=== PATIENT | female | born 1990 | race Caucasian/White ===

== ENCOUNTER 2021-12-02 09:07 | Emergency (ER) | payer OTHER, SELFPAY ==
--- NOTE | ~2021-12-02 | US_ITS ---
EXAMINATION: US pelvic complete EXAM DATE: 12/02/2021 11:51 INDICATION: left ovarian cyst . TECHNIQUE: Pelvic transabdominal sonogram was performed. There are multiple grayscale and Doppler im ages available for interpretation. Correlation is made to CT performed an hour earlier. FINDINGS: Uterus measures 7.9 x 4.3 x 2.7 cm, and is morphologically normal. Endometrial stripe farideh sures 2 mm, within normal limits. There is no free pelvic fluid. Right adnexa: The ovary measures 2.1 x 2.3 x 1.3 cm and is morphologically normal. Ovarian vascular f low confirmed. Left adnexa: The ovary measures 4.3 x 3.5 x 3.3 cm, with complex cystic fishnet appearance lesion farideh suring 3.5 x 3.1 x 2.7 cm, consistent with a hemorrhagic cyst. Ovarian vascular flow confirmed. IMPRESSION: 1. Unruptured left ovarian hemorrhagic cyst. Reviewed, dictated and finalized at location B.
--- NOTE | ~2021-12-02 | CT_ITS ---
EXAMINATION: CT abdomen pelvis w con EXAM DATE: 12/02/2021 10:53 INDICATION: Mid abdominal pain. TECHNIQUE: Spiral CT of the abdomen and pelvis was performed following intravenous injection of 100 m L Omnipaque 350. Axial, coronal and sagittal images of the abdomen and pelvis were reviewed. The do se-length product (DLP) for this examination was 341.85 mGy-cm. The exposure was tailored according to patient size (auto mA exposure control), and iterative reconstruction (ASIR) was used as additiona l dose reduction technique. There is no prior study for comparison. FINDINGS: The liver, spleen, adrenal glands and pancreas are unremarkable. Gallbladder is unremarkab le. No biliary obstruction. Portal and splenic veins are patent. Kidneys enhance symmetrically. T here is no hydronephrosis. The uterus is unremarkable. There is a 3 cm left ovarian unruptured phys iologic or hemorrhagic cyst. The bladder is unremarkable. There is no retroperitoneal or pelvic lym phadenopathy. The appendix is normal. The stomach and small bowel are unremarkable. There is expected amount of c olonic stool. No free intraperitoneal gas. The heart is normal in size. There are no pericardial or pleural effusions. The lung bases are unremarkable. The bones are unremarkable. IMPRESSION: 1. Left ovarian unruptured physiologic or hemorrhagic cyst. 2. No acute findings. Reviewed, dictated and finalized at location B.
[2021-12-02 09:33] VITALS: BP 152/97; PULSE 96; RESP 20; TEMP 36.8; O2SAT 100
--- NOTE | 2021-12-02 09:33 | PC.NURSE ---
PT states she is unable to urinate.
[2021-12-02 09:43] LABS: Basophils Absolute Auto 0.1 K/mm3 (0.0-0.1); Basophils Percent Auto 0.5 % (0.2-1.2); Eosinophils Percent Auto 0.2 % (0-4.4); Hematocrit 38.9 % (37.0-47.0); Hemoglobin 13.6 g/dL (12.0-15.0); Immature Granulocyte Absolute 0.03 K/mm3 (0.00-0.031); Immature Granulocyte Percent A 0.3 % (0-0.5); Lymphocytes Percent Auto 26.6 % (18.3-44.2); Mean Corpuscular Hemoglobin 31.5 pg (26-34); Mean Platelet Volume 9.8 fl (7.4-10.4); Monocytes Absolute Auto 0.7 K/mm3 (0.1-0.6); Monocytes Percent Auto 7.2 % (2.6-8.5); Neutrophils Absolute Auto 6.6 K/mm3 (1.3-6.7); Neutrophils Percent Auto 65.2 % (45.5-73.1); Platelet Count Result 340 k/mm3 (150-375); Red Blood Count 4.32 M/mm3 (4.2-5.4); Red Cell Distribution Width 11.9 % (11.5-14.5); White Blood Count 10.1 K/mm3 (4.5-10.0)
[2021-12-02 09:55] LABS: Alanine Aminotransferase 18 U/L (4-35); Albumin Level 4.6 g/dL (3.5-5.1); Alkaline Phosphatase 75 U/L (38-126); Anion Gap 9 mmol/L (8-16); Aspartate Amino Transferase 23 U/L (14-36); Bilirubin,Total 0.4 mg/dL (0.2-1.3); Blood Urea Nitrogen 11 mg/dL (7-17); Calcium 10.3 mg/dL (8.4-10.2); Carbon Dioxide 26 mmol/L (22-30); Chloride 103 mmol/L (98-107); Estimated CRCL calculation 94 ml/min; Estimated Glomerular Filt Rate > 60; Glucose 94 mg/dL (65-110); Lipase 69 U/L (23-300); Potassium 3.6 mmol/L (3.4-5.0); Sodium 138 mmol/L (137-145)
--- NOTE | 2021-12-02 10:06 | ED.ABDPAIN ---
HPI - Abdominal Pain General Chief Complaint: Abdominal Pain <Jackelyn Gonzalez PA-C - Last Filed: 12/02/21 13:29> Stated Complaint: abd pain <Jackelyn Gonzalez PA-C - Last Filed: 12/02/21 13:29> Time Seen by Provider: 12/02/21 09:25 <Jackelyn Gonzalez PA-C - Last Filed: 12/02/21 13:29> Source: patient <Jackelyn Gonzalez PA-C - Last Filed: 12/02/21 13:29> Mode of arrival: ambulatory <Jackelyn Gonzalez PA-C - Last Filed: 12/02/21 13:29> Limitations: no limitations <Jackelyn Gonzalez PA-C - Last Filed: 12/02/21 13:29> History of Present Illness HPI narrative: This is a 31-year-old female that presents to the emergency department for mid abdominal pain since yesterday. Reports the pain is achy and intermittent in nature. No associated symptoms. Reports she has never had a pain like this before which prompted her to be seen. Denies fever, vomiting, dysuria, hematuria, or diarrhea. <Jackelyn Gonzalez PA-C - Last Filed: 12/02/21 13:29> Related Data Allergies/Adverse Reactions: Allergies Allergy/AdvReac Type Severity Reaction Status Date / Time No Known Allergies Allergy Mild Unverified 04/28/09 13:18 <Jackelyn Gonzalez PA-C - Last Filed: 12/02/21 13:29> Review of Systems Review of Systems: CONSTITUTIONAL: Denies fever GASTROINTESTINAL: Reports abdominal pain. Denies nausea, vomiting, or diarrhea. GENITOURINARY: Denies dysuria or hematuria. <Jackelyn Gonzalez PA-C - Last Filed: 12/02/21 13:29> All systems reviewed & are unremarkable except as noted in HPI and below <Jackelyn Gonzalez PA-C - Last Filed: 12/02/21 13:29> [facility] Past Medical History Medical History: Medical History (Updated 12/02/21 @ 13:28 by Jackelyn Gonzalez PA-C) No active medical problems <Jackelyn Gonzalez PA-C - Last Filed: 12/02/21 13:29> Social History Social History: Social History (Updated 12/02/21 @ 10:07 by Jackelyn Gonzalez PA-C) Smoking status: Never smoker <Jackelyn Gonzalez PA-C - Last Filed: 12/02/21 13:29> Exam Narrative: GENERAL: Well-appearing, well-nourished, and in no acute distress. HEAD: Normocephalic, atraumatic. EYES: EOMI. CHEST: Clear to auscultation. No respiratory distress. No wheezes rales or rhonchi HEART: Regular rate and rhythm. No murmur heard. Normal peripheral pulses. ABDOMEN: Soft, nontender, nondistended, normal active bowel sounds. EXTREMITIES: Normal range of motion. No edema. SKIN: Warm, dry, no rash. NEURO: No focal deficits. Alert and oriented x3. PSYCH: Normal mood and affect <Jackelyn Gonzalez PA-C - Last Filed: 12/02/21 13:29> Course Vital Signs Vital signs: Vital Signs Temperature 98.2 F 12/02/21 09:33 Pulse Rate 96 12/02/21 09:33 Respiratory Rate 20 12/02/21 09:33 Blood Pressure 152/97 H 12/02/21 09:33 Pulse Oximetry 100 12/02/21 09:33 Temperature 98.2 F 12/02/21 09:33 Pulse Rate 82 12/02/21 13:30 Respiratory Rate 16 12/02/21 13:30 Blood Pressure 121/79 12/02/21 13:30 Pulse Oximetry 100 12/02/21 13:30 <Jackelyn Gonzalez PA-C - Last Filed: 12/02/21 13:29> MDM - Abdominal Pain MDM Narrative Medical decision making narrative: Patient presents to the emergency department for mid abdominal pain ongoing since yesterday. She is afebrile and nontoxic-appearing. CBC and metabolic panel without concerning findings. Lipase is normal. UA without evidence of infection. Bedside test is negative. CT scan of the abdomen and pelvis shows a left ovarian nonruptured physiologic or hemorrhagic cyst. No acute findings. Pelvic ultrasound shows unruptured left ovarian hemorrhagic cyst. Normal vascular flow to the ovaries. Patient was updated on case findings. She is stable and felt appropriate for further outpatient evaluation. Instructed have close follow-up with primary doctor and gynecology. She was given warnings to return to the ER <Jackelyn Gonzalez PA-C - Last Filed: 12/02/21 13:29> Lab Da
[2021-12-02 10:30] VITALS: BP 124/68; PULSE 90; RESP 18
[2021-12-02 12:35] LABS: Appearance Urine Clear (Clear); Bilirubin Urine Negative (Negative); Blood Urine Negative (Negative); Color Urine Yellow (Yellow); Glucose Urine UA Negative (Negative); Ketones Urine 1+ mg/dL (Negative); Leukocyte Esterase Ur Negative LEU/UL (Negative); Nitrate Urine Negative (Negative); Protein Urine Negative (Negative); Specific Grav Ur 1.015 (1.001-1.035); Urobilinogen Urine 0.2 mg/dL (<2.0); pH Urine 5.5 (5.0-9.0)
[2021-12-02 12:45] LABS: Mucus Urine Rare /lpf; Squamous Epithelial Cell Urine Few /hpf (Few); WBC Urine 0-3 /hpf
[2021-12-02 12:46] LABS: Add Urine Microscopic? YES
[2021-12-02 13:30] VITALS: BP 121/79; PULSE 82; RESP 16; O2SAT 100
== END 2021-12-02 13:44 | disposition home or self-care (01) ==
PROVIDERS: Physician Assistant; Emergency Provider Emergency Medicine
DX: R10.10 Upper abdominal pain, unspecified (principal); N83.202 Unspecified ovarian cyst, left side
CPT/HCPCS: 36415; 74177; 76856; 80053; 81001; 81025; 83690; 85025; 99284; Q9967